=== PATIENT | male | born 1995 | race African-American/Black ===

== ENCOUNTER 2018-01-28 07:49 | Emergency (ER) | payer OTHER, SELFPAY ==
[2018-01-28] MEDS ORDERED: cefTRIAXone\\ROCEPHIN 500 MG VIAL ONE (08:08)
[2018-01-28] MEDS ORDERED: Azithromycin 250 MG TAB ONE (08:08)
[2018-01-28] MEDS ORDERED: Lidocaine 1% 20 ML MDV ONE (08:09)
[2018-01-28 08:11] LABS: Bilirubin Negative (Negative); Blood, Urine Negative (Negative); Clarity Clear (Clear); Glucose, Urine (Dipstick) Negative (Negative); Leukocyte Negative (Negative); Nitrite Negative (Negative); Protein, Urine (Dipstick) Negative (Neg-Trace); Specific Gravity, Urine 1.015 (1.005-1.030); Urobilinogen 0.2 mg/dL (0.2-1.0)
[2018-01-31 18:50] LABS: Chlamydia by PCR DETECTED (NotDetected); GC by PCR Not Detected (NotDetected)
== END 2018-01-28 08:38 | disposition home or self-care (01) ==
LOC: BURERS 07:49
DX: N34.1 Nonspecific urethritis (principal); F41.9 Anxiety disorder, unspecified; F32.9 Major depressive disorder, single episode, unspecified; F17.210 Nicotine dependence, cigarettes, uncomplicated
CPT/HCPCS: 81003; 87491; 87591; 96372; J0696; J2001